=== PATIENT | male | born 1955 | race Caucasian/White ===

== ENCOUNTER 2019-08-08 22:23 | Inpatient (IN) ==
--- NOTE | 2019-08-08 22:45 | Emergency Department Note ---
History of Present Illness General Chief Complaint: Chest Pain Stated Complaint: CHEST PAIN, Time Seen by Provider: 08/08/19 22:35 Source: patient Mode of arrival: ambulatory Limitations: no limitations History of Present Illness Provider Complaint: chest pain Onset (ago): hour(s) 3 Duration: intermittent (The patient states that the pain comes and goes about every 15 minutes or so. Does not appear to be exertion related.) and now resolved Onset: during rest Pain Location: substernal Pain Radiation: back (Mildly to the back) Severity: severe (When it occurs.) Maximum Pain Intensity: 7 Current Pain Intensity: 0 Quality: + other (Pain) Relieved By: + nothing Exacerbated By: + nothing Context: no recent illness, no recent surgery, no new medications and no history of DVT/PE Associated symptoms: no nausea, no vomiting, no diaphoresis, no dyspnea, no sense of impending doom, no palpitations, no fever, no cough and no leg swelling Treatments prior to arrival: none The patient is a 64-year-old male who presents to the ED with a chief complaint of some chest pain that he describes as a pain that started around 7:30 PM tonight. He states that the pain comes and goes. When it comes it is intense. It then goes away for about 10 to 15 minutes. It comes back randomly and it started when he was at rest. He has history of three-vessel CABG in 2005. His pain is retrosternal and radiates a little to the back. Denies any associated symptoms. No nausea, diaphoresis, shortness of breath or recent illness. Home Medications Home Medications Medication Instructions Recorded Confirmed Type aspirin 81 mg PO DAILY 08/08/19 08/08/19 History atenolol 12.5 mg PO DAILY 08/08/19 08/08/19 History atorvastatin 20 mg PO DAILY 08/08/19 08/08/19 History empagliflozin [Jardiance] 25 mg PO DAILY 08/08/19 08/08/19 History hydrochlorothiazide 25 mg PO UD 08/08/19 08/08/19 History insulin aspart U-100 [Novolog 1 sliding scale dose SUBCUT 08/08/19 08/08/19 History PenFill U-100 Insulin] USEASDIRECTD insulin glargine [Lantus U-100 31 unit SUBCUT BID 08/08/19 08/08/19 History Insulin] lisinopril 5 mg PO DAILY 08/08/19 08/08/19 History metformin 1,000 mg PO BID 08/08/19 08/08/19 History multivitamin 1 tab PO DAILY 08/08/19 08/08/19 History omega 7-ppb-ild-fish oil [Fish Oil] 3 cap PO DAILY 08/08/19 08/08/19 History sitagliptin [Januvia] 100 mg PO DAILY 08/08/19 08/08/19 History Allergies Allergy/AdvReac Type Severity Reaction Status Date / Time No Known Allergies Allergy Mild Verified 08/08/19 22:59 Past Med/Surg History Medical History (Updated 08/08/19 @ 22:53 by Juancho Rios DO) Diabetes Surgical History (Updated 08/08/19 @ 22:47 by Juancho Rios DO) Hx of CABG Social History Feels Safe at Home: Yes Smoking Status: Never smoker Review of Systems A total of 10 systems reviewed and were otherwise negative Physical Exam Vital Signs Vital Signs - 24 hr 08/08/19 22:25 08/08/19 23:00 08/08/19 23:09 Temperature 36.5 C Temperature Source Oral Pulse Rate 88 76 Pulse Rate from SpO2 Sensor 77 Respiratory Rate 20 18 Respiratory Effort / Characteristics Non-Labored Respiratory Depth Normal Blood Pressure 157/90 H 136/62 Blood Pressure Mean 112 77 Pulse Oximetry 95 94 94 Oxygen Delivery Method Room Air Room Air Room Air Sepsis Recent Fever Within 48 Hours No Sepsis New/Unexplained Change in Mental Status No Sepsis Action Taken by Nursing No Action Required 08/08/19 23:32 08/09/19 00:00 Temperature Temperature Source Pulse Rate 78 Pulse Rate from SpO2 Sensor 77 Respiratory Rate 18 Respiratory Effort / Characteristics Respiratory Depth Blood Pressure 131/64 Blood Pressure Mean 83 Pulse Oximetry 94 95 Oxygen Delivery Method Room Air Room Air Sepsis Recent Fever Within 48 Hours Sepsis New/Unexplained Change in Mental Status Sepsis Action Taken by Nursing CONSTITUTIONAL/VITAL SIGNS: Reviewed / noted above. GENERAL: Non-toxic in appearance. INTEGUMENTARY: Warm, dry, and [place]. HEAD: Normocephalic. EYES: without scleral icterus or trauma. ENT/OROPHARYNX: clear and moist. LYMPHADENOPATHY/NECK: Is supple without lymphadenopathy or meningismus. RESPIRATORY: Lungs clear and equal. CARDIOVASCULAR: Regular rate and rhythm. GI/ABDOMEN: Soft and nontender. No organomegaly or pulsatile mass. No rebound or guarding. Normal bowel sounds. EXTREMITIES: Warm and well perfused. BACK: No CVA tenderness. NEUROLOGICAL: Intact without focal deficits. PSYCHIATRIC: normal affect. MUSCULOSKELETAL: Normally developed with good muscle tone. TRIAGE NURSING DOCUMENTATION REVIEWED. Course Administered Medications Discontinued Medications Aspirin (Aspirin) 324 mg PO NOW STA Stop: 08/09/19 00:11 Last Admin: 08/09/19 00:16 Dose: 324 mg Documented by: [id number] Medical Decision Making Differential Diagnosis The differential that was considered includes acute myocardial infarction, acute coronary syndrome, myocarditis, pericarditis, pericardial effusions /tamponade, esophageal perforation, thoracic aortic dissection, pulmonary embolism, pneumonia, pneumothorax, pancreatitis, shingles, acute cholecystitis, perforated abdominal viscus. Medical Records Attestation: I reviewed the patient's medical records. Home Medications Current Medication List: was personally reviewed by me Laboratory Data Attestation: I reviewed the patient's lab results. Result diagrams: 08/08/19 22:42 08/08/19 22:42 Labs: Lab Results 08/08/19 08/08/19 08/08/19 Range/Units 22:42 22:42 22:55 WBC 8.81 (4.8-10.8) K/uL RBC 5.26 (4.7-6.1) M/uL Hgb 16.2 (14.0-18.0) g/dL Hct 46.4 (42-52) % MCV 88.2 (80-100) fL MCH 30.8 (25-34) pg MCHC 34.9 (32-36) g/dL RDW Std Deviation 40.8 (36.4-46.3) fL RDW Coeff of Jenise 12.8 (11.5-14.5) % Plt Count 203 (130-400) K/uL MPV 10.6 H (7.4-10.4) fL Immature Gran % (Auto) 0.6 % Neut % (Auto) 57.9 % Lymph % (Auto) 31.3 % Day % (Auto) 8.5 % Eos % (Auto) 1.5 % Baso % (Auto) 0.2 % Immature Gran # (Auto) 0.05 H (0.00-0.02) K/uL Neut # (Auto) 5.10 (1.4-6.5) K/uL Lymph # (Auto) 2.76 (1.2-3.4) K/uL Day # (Auto) 0.75 H (0.11-0.59) K/uL Eos # (Auto) 0.13 (0-0.5) K/uL Baso # (Auto) 0.02 (0-0.2) K/uL PT 10.5 (9.0-12.0) Seconds INR 1.0 (0.9-1.1) APTT 26.5 (21.0-31.0) Seconds PTT Ratio 0.9 Sodium 137 (136-145) mmol/L Potassium 3.6 (3.5-5.1) mmol/L Chloride 103 (98-107) mmol/L Carbon Dioxide 26 (21-32) mmol/L Anion Gap 8.0 (3-11) BUN 15 (7-18) mg/dl Creatinine 1.17 (0.6-1.4) mg/dl Est Cr Clr Drug Dosing 80.0 ml/min Est GFR ( Amer) 74.9 Est GFR (Non-Af Amer) 64.6 BUN/Creatinine Ratio 13.2 (10-20) Glucose 215 H (70-99) mg/dl Calcium 9.1 (8.5-10.1) mg/dl Total Bilirubin 0.5 (0.2-1) mg/dl AST 21 (15-37) U/L ALT 32 (12-78) U/L Alkaline Phosphatase 81 (45-117) U/L Total Creatine Kinase 95 (39-308) U/L Troponin I 0.057 H* (0-0.045) ng/ml Total Protein 8.0 (6.4-8.2) gm/dl Albumin 3.5 (3.4-5.0) gm/dl Globulin 4.5 H (2.5-4.0) gm/dl Albumin/Globulin Ratio 0.8 L (0.9-2) Specimen Hemolysis Imaging Data Chest x-ray: Radiologist's impression: XR chest 1V portable CLINICAL HISTORY: Atypical chest pain COMPARISON STUDY: 2005 FINDINGS: There are postsurgical changes of midline sternotomy. The heart is mildly enlarged. There is no failure. There is no focal pulmonary consolidation. There are no pleural effusions. There are minor atelectatic changes at the left lung base.[ IMPRESSION: No active disease in the chest. ECG Data Attestation: I personally reviewed and interpreted this ECG as follows: Indication: chest pain Rate (beats per minute): 89 Rhythm: sinus tachycardia Findings: + PAC, + PVC and + RBBB; no ST elevation Additional Comments: The patient does report he has history of a chronic right bundle branch block. Blood Pressure Blood Pressure Findings: Elevated blood pressure Blood Pressure Disposition: Referred to patients primary care provider MDM Narrative The patient is a 64-year-old male who presents to the ED with a chief complaint of some chest pain that he describes as a pain that started around 7:30 PM tonight. He states that the pain comes and goes. When it comes it is intense. It then goes away for about 10 to 15 minutes. It comes back randomly and it started when he was at rest. He has history of three-vessel CABG in 2005. His pain is retrosternal and radiates a little to the back. Denies any associated symptoms. No nausea, diaphoresis, shortness of breath or recent illness. The patient's blood pressure was elevated. His physical exam was unremarkable. He is currently asymptomatic. His twelve-lead EKG shows a sinus tach at a rate of 89 with occasional PAC and PVC. No acute ischemic changes. The patient's troponin is mildly elevated. CBC and chemistry panel was unremarkable. The patient was given aspirin p.o. as well as Lovenox subcu. The patient will be seen by the hospitalist for further evaluation and care. Impression & Plan Chest pain Discharge Plan Visit Data Chief Complaint: Chest Pain Stated Complaint: CHEST PAIN, ED Provider: Juancho Rios Discharge Problem: Chest pain Patient Disposition: Being Evaluated by Hospitalist Forms Stand Alone Forms: My [facility] Prescriptions Prescriptions: No Action aspirin 81 mg Tablet,Delayed Release (Dr/Ec) 81 mg PO DAILY RF: 0 atenolol 25 mg Tablet 12.5 mg PO DAILY RF: 0 atorvastatin 20 mg Tablet 20 mg PO DAILY RF: 0 omega 1-vib-pow-fish oil [Fish Oil] 1,000 mg (120 mg-180 mg) Capsule 3 cap PO DAILY RF: 0 hydrochlorothiazide 25 mg Tablet 25 mg PO UD RF: 0 insulin aspart U-100 [Novolog PenFill U-100 Insulin] 100 unit/mL Cartridge 1 sliding scale dose SUBCUT USEASDIRECTD RF: 0 Lantus U-100 Insulin 100 unit/mL Solution 31 unit SUBCUT BID RF: 0 lisinopril 5 mg Tablet 5 mg PO DAILY RF: 0 metformin 1,000 mg Tablet 1,000 mg PO BID RF: 0 multivitamin Tablet 1 tab PO DAILY RF: 0 Januvia 100 mg Tablet 100 mg PO DAILY RF: 0 Jardiance 25 mg Tablet 25 mg PO DAILY RF: 0 Referrals Referrals: Bruno Leiva MD [Primary Care Provider] - Discharge Problem: Chest pain Qualifiers: Chest pain type: precordial pain Qualified Code(s): R07.2 - Precordial pain
[2019-08-08 22:48] LABS: Basophils # (auto) 0.02 K/uL (0-0.2); Basophils % (auto) 0.2 %; Eosinophils # (auto) 0.13 K/uL (0-0.5); Eosinophils % (auto) 1.5 %; Hematocrit (blood only) 46.4 % (42-52); Hemoglobin 16.2 g/dL (14.0-18.0); Immature Granulocytes # (auto) 0.05 K/uL (0.00-0.02); Immature Granulocytes % (auto) 0.6 %; Lymphocytes # (auto) 2.76 K/uL (1.2-3.4); Lymphocytes % (auto) 31.3 %; Mean Corpuscular Hemoglobin 30.8 pg (25-34); Mean Corpuscular Hgb Conc 34.9 g/dL (32-36); Mean Corpuscular Volume 88.2 fL (80-100); Mean Platelet Volume 10.6 fL (7.4-10.4); Monocytes # (auto) 0.75 K/uL (0.11-0.59); Monocytes % (auto) 8.5 %; Neutrophils % (auto) 57.9 %; Platelet Count 203 K/uL (130-400); RDW Coefficient of Variation 12.8 % (11.5-14.5); RDW Standard Deviation 40.8 fL (36.4-46.3); Red Blood Count 5.26 M/uL (4.7-6.1); White Blood Count 8.81 K/uL (4.8-10.8)
--- NOTE | 2019-08-08 22:54 | XRay Report ---
XR chest 1V portable CLINICAL HISTORY: Atypical chest pain COMPARISON STUDY: 2006 FINDINGS: There are postsurgical changes of midline sternotomy. The heart is mildly enlarged. There i s no failure. There is no focal pulmonary consolidation. There are no pleural effusions. There are mi nor atelectatic changes at the left lung base.[ IMPRESSION: No active disease in the chest. ACT 112: Negative or not required by law. Electronically signed by: Eugenio Sanchez M.D. 08/08/2019 10:52 PM
[2019-08-08 23:17] LABS: Partial Thromboplastin Ratio 0.9; Partial Thromboplastin Time 26.5 Seconds (21.0-31.0); Prothrombin Time 10.5 Seconds (9.0-12.0)
[2019-08-08 23:30] LABS: Albumin Globulin Ratio 0.8 (0.9-2); Albumin Level 3.5 gm/dl (3.4-5.0); BUN Creatinine Ratio 13.2 (10-20); Bilirubin,Total 0.5 mg/dl (0.2-1); Calcium 9.1 mg/dl (8.5-10.1); Est GFR (African American) 74.9; Est GFR (Non-African American) 64.6; Globulin 4.5 gm/dl (2.5-4.0); Potassium 3.6 mmol/L (3.5-5.1); Troponin I 0.057 ng/ml (0-0.045)
[2019-08-09] MEDS ORDERED: ASPIRIN CHEW 324 MG PO STA (00:10)
[2019-08-09] MEDS ORDERED: ENOXAPARIN 1 MG/KG SQ SCH (00:15)
[2019-08-09] MEDS ORDERED: Heparin IV Standard *NO* Bolus IV STA (00:39)
--- NOTE | 2019-08-09 00:39 | History & Physical Report ---
Date of Service August 09, 2019 Assessment & Plan (1) Chest pain: With troponin elevation hx CAD status post CABG NSTEMI vs uncontrolled hypertension hyperlipidemia, on statin Rx DM 2 insulin requiring, suboptimal control as of recent outpatient hemoglobin A1c of 8.20 December 2018 past tobacco abuse PCU Continue patient aspirin, beta marisol, statin Rx; IV heparin, nitro as needed Trend troponin TTE, Cardiology consult RE chest pain Titrate home BP meds Basal insulin adjusted for n.p.o. status in anticipation of procedure in a.m., ISS BG goal [id number], carb count coverage, update hemoglobin A1c DVT prophylaxis with IV heparin Full code Text document was generated using Head[employer] voice recognition software. It may contain grammatical or spelling errors. Kindly contact undersigned for clarification of any documentation item in question. History of Present Illness CABG CABG Chief Complaint: Chest pain Primary Care Provider: Bruno Leiva MD History obtained from patient and records. Medical history significant for CAD status post CABG, hypertension, hyperlipidemia, DM 2 insulin requiring, past tobacco abuse, GERD. Remote confinement December 2005 for right-sided heart failure, posterior pericardial effusion. Patient transferred to [facility] for further management. 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 Patient compliant with home meds. Admits to a little more stress than usual at the [facility] due to pandemic. Spontaneous resolution of chest pain at the ER. Medical History as above Surgical History : CABG, appendectomy, left femur surgery, ton sillectomy/adenoidectomy Family History : Heart disease, diabetes Personal/Social history : Past tobacco abuse, rare EtOH intake, [employer] employee Allergies Allergy/AdvReac Type Severity Reaction Status Date / Time No Known Allergies Allergy Mild Verified 08/08/19 22:59 Home Medications Home Medications Medication Instructions Recorded Confirmed Type aspirin 81 mg PO DAILY 08/08/19 08/08/19 History atenolol 12.5 mg PO DAILY 08/08/19 08/08/19 History atorvastatin 20 mg PO DAILY 08/08/19 08/08/19 History empagliflozin [Jardiance] 25 mg PO DAILY 08/08/19 08/08/19 History hydrochlorothiazide 25 mg PO UD 08/08/19 08/08/19 History insulin aspart U-100 [Novolog 1 sliding scale dose SUBCUT 08/08/19 08/08/19 History PenFill U-100 Insulin] USEASDIRECTD insulin glargine [Lantus U-100 31 unit SUBCUT BID 08/08/19 08/08/19 History Insulin] lisinopril 5 mg PO DAILY 08/08/19 08/08/19 History metformin 1,000 mg PO BID 08/08/19 08/08/19 History multivitamin 1 tab PO DAILY 08/08/19 08/08/19 History omega 4-hij-iec-fish oil [Fish Oil] 3 cap PO DAILY 08/08/19 08/08/19 History sitagliptin [Januvia] 100 mg PO DAILY 08/08/19 08/08/19 History Past Med/Surg History Medical History (Updated 08/08/19 @ 22:53 by Juancho Rios DO) Diabetes Surgical History (Updated 08/08/19 @ 22:47 by Juancho Rios DO) Hx of CABG Social History Preferred Language: Bulgarian Communication Ability: Effective Orthopedic Assistant Required: No Beliefs That Will Affect Care: None Current Living Situation: Spouse Other Information That Helps Us Care for You: No Feels Safe at Home: Yes Safety Concerns: Feels Safe At This Time Smoking Status: Former smoker Do You Dip or Chew Tobacco: No ; Smoking End Date: 1988 ; Second Hand Exposure: No ; Tobacco Cessation Education Requested by Patient: No Hx Alcohol Use: No Hx Substance Use: No Review of Systems Review of Systems: As per HPI, all 10 systems reviewed, all other ROS negative Physical Exam Physical Exam: GENERAL: Comfortable, pleasant, obese, no respiratory distress SKIN: Normal color, warm HEENT: Partial alopecia, [place] palpebral conjunctivae, no ptosis, dry buccal mucosa NECK : Supple, short neck, no tenderness CHEST : CTA, no tenderness HEART : RRR, no obvious murmurs ABDOMEN: Some distention, nontender EXTREMITIES : Minimal LE swelling, no LE tenderness, no other conspicuous deformities noted NEUROLOGIC : Coherent, no facial asymmetry, no other gross focality Results & Data Vital Signs (Past 12 Hours) Vital Signs Temp Pulse Resp BP Pulse Ox 08/09/19 00:30 81 19 164/78 H 97 08/09/19 00:00 78 18 131/64 95 08/08/19 23:32 94 08/08/19 23:09 76 18 136/62 94 08/08/19 23:00 94 08/08/19 22:25 36.5 C 88 20 157/90 H 95 Laboratory Results Laboratory Results WBC 8.81 K/uL (4.8-10.8) 08/08/19 22:42 RBC 5.26 M/uL (4.7-6.1) 08/08/19 22:42 Hgb 16.2 g/dL (14.0-18.0) 08/08/19 22:42 Hct 46.4 % (42-52) 08/08/19 22:42 MCV 88.2 fL (80-100) 08/08/19 22:42 MCH 30.8 pg (25-34) 08/08/19 22:42 MCHC 34.9 g/dL (32-36) 08/08/19 22:42 RDW Std Deviation 40.8 fL (36.4-46.3) 08/08/19 22:42 RDW Coeff of Jenise 12.8 % (11.5-14.5) 08/08/19 22:42 Plt Count 203 K/uL (130-400) 08/08/19 22:42 MPV 10.6 fL (7.4-10.4) H 08/08/19 22:42 Immature Gran % (Auto) 0.6 % 08/08/19 22:42 Neut % (Auto) 57.9 % 08/08/19 22:42 Lymph % (Auto) 31.3 % 08/08/19 22:42 Glenn % (Auto) 8.5 % 08/08/19 22:42 Eos % (Auto) 1.5 % 08/08/19 22:42 Baso % (Auto) 0.2 % 08/08/19 22:42 Immature Gran # (Auto) 0.05 K/uL (0.00-0.02) H 08/08/19 22:42 Neut # (Auto) 5.10 K/uL (1.4-6.5) 08/08/19 22:42 Lymph # (Auto) 2.76 K/uL (1.2-3.4) 08/08/19 22:42 Glenn # (Auto) 0.75 K/uL (0.11-0.59) H 08/08/19 22:42 Eos # (Auto) 0.13 K/uL (0-0.5) 08/08/19 22:42 Baso # (Auto) 0.02 K/uL (0-0.2) 08/08/19 22:42 PT 10.5 Seconds (9.0-12.0) 08/08/19 22:55 INR 1.0 (0.9-1.1) 08/08/19 22:55 APTT 26.5 Seconds (21.0-31.0) 08/08/19 22:55 PTT Ratio 0.9 08/08/19 22:55 Sodium 137 mmol/L (136-145) 08/08/19 22:42 Potassium 3.6 mmol/L (3.5-5.1) 08/08/19 22:42 Chloride 103 mmol/L (98-107) 08/08/19 22:42 Carbon Dioxide 26 mmol/L (21-32) 08/08/19 22:42 Anion Gap 8.0 (3-11) 08/08/19 22:42 BUN 15 mg/dl (7-18) 08/08/19 22:42 Creatinine 1.17 mg/dl (0.6-1.4) 08/08/19 22:42 Est Cr Clr Drug Dosing 80.0 ml/min 08/08/19 22:42 Est GFR ( Amer) 74.9 08/08/19 22:42 Est GFR (Non-Af Amer) 64.6 08/08/19 22:42 BUN/Creatinine Ratio 13.2 (10-20) 08/08/19 22:42 Glucose 215 mg/dl (70-99) H 08/08/19 22:42 Calcium 9.1 mg/dl (8.5-10.1) 08/08/19 22:42 Total Bilirubin 0.5 mg/dl (0.2-1) 08/08/19 22:42 AST 21 U/L (15-37) 08/08/19 22:42 ALT 32 U/L (12-78) 08/08/19 22:42 Alkaline Phosphatase 81 U/L (45-117) 08/08/19 22:42 Total Creatine Kinase 95 U/L (39-308) 08/08/19 22:42 Troponin I 0.057 ng/ml (0-0.045) H* 08/08/19 22:42 Total Protein 8.0 gm/dl (6.4-8.2) 08/08/19 22:42 Albumin 3.5 gm/dl (3.4-5.0) 08/08/19 22:42 Globulin 4.5 gm/dl (2.5-4.0) H 08/08/19 22:42 Albumin/Globulin Ratio 0.8 (0.9-2) L 08/08/19 22:42 Specimen Hemolysis 08/08/19 22:42 Diagnostic Findings Chest x-ray : There are postsurgical changes of midline sternotomy. The heart is mildly enlarged. There is no failure. There is no focal pulmonary consolidation. There are no pleural effusions. There are minor atelectatic changes at the left lung base.[ EKG as per my interpretation : Rate 90, NSR, normal axis, right bundle branch block, PVCs (1) Chest pain Chest pain type: precordial pain Qualified Code(s): R07.2 - Precordial pain
[2019-08-09] MEDS ORDERED: lisinopriL 10 MG TAB PO STA (00:48)
[2019-08-09] MEDS ORDERED: HEPARIN 25000 UNIT/500 ML D5W IV ONE (00:50)
[2019-08-09] MEDS: HEPARIN SODIUM/DEXTROSE 25,000 UNITS/500 ML BAG IV SCH ×2 (00:52→01:45)
[2019-08-09] MEDS ORDERED: lisinopriL 5 MG TAB PO ONE (00:58)
[2019-08-09 01:05] LABS: Thyroid Stimulating Hormone 4.17 uIu/ml (0.300-4.500)
[2019-08-09] MEDS ORDERED: LORazepam 0.5 MG/1 ML VIAL IV PRN (01:40)
[2019-08-09] MEDS ORDERED: MoRPHine SULFATE 4 MG/ML 1 ML CARP\\VIAL IV PRN (01:40)
[2019-08-09] MEDS ORDERED: DEXTROSE 50% 50 ML SYRINGE IV PRN (01:40)
[2019-08-09] MEDS ORDERED: CARBOHYDRATES FOR HYPOGLYCEMIA PO PRN (01:40)
[2019-08-09] MEDS ORDERED: GLUCOSE 40% GEL 15 GM TUBE PO PRN (01:40)
[2019-08-09] MEDS ORDERED: GLUCOSE 10 TABS/TUBE PO PRN (01:40)
[2019-08-09] MEDS ORDERED: GLUCAGON FOR INJ 1 MG VIAL SQ PRN (01:40)
[2019-08-09] MEDS ORDERED: NSS + 20MEQ KCL 20 MEQ/1,000 ML BAG IV SCH (01:40)
[2019-08-09] MEDS ORDERED: ACETAMINOPHEN 325 MG TAB PO PRN (01:40)
[2019-08-09] MEDS ORDERED: TRAMADOL HCL 50 MG TABLET PO PRN (01:40)
[2019-08-09] MEDS ORDERED: PROMETHAZINE HCL 12.5 MG in SODIUM CHLORIDE 0.9% 50 ML IV PRN (01:40)
[2019-08-09] MEDS ORDERED: INSULIN GLARGINE SOLOSTAR 100 UNITS/ML 3 ML PEN SC STA (01:40)
[2019-08-09] MEDS: INSULIN ASPART 100 UNITS/ML 3 ML PEN SC SCH ×5 (02:18→21:19)
[2019-08-09] MEDS ORDERED: ATENOLOL 25 MG TABLET PO SCH ×2 (03:30→09:00)
[2019-08-09] MEDS ORDERED: POTASSIUM CHLORIDE 20 MEQ TABCR PO STA (05:18)
[2019-08-09 07:12] LABS: Basophils # (auto) 0.02 K/uL (0-0.2); Basophils % (auto) 0.2 %; Eosinophils # (auto) 0.08 K/uL (0-0.5); Hematocrit (blood only) 43.7 % (42-52); Hemoglobin 14.8 g/dL (14.0-18.0); Immature Granulocytes # (auto) 0.03 K/uL (0.00-0.02); Immature Granulocytes % (auto) 0.4 %; Lymphocytes # (auto) 2.11 K/uL (1.2-3.4); Lymphocytes % (auto) 26.3 %; Mean Corpuscular Hgb Conc 33.9 g/dL (32-36); Mean Corpuscular Volume 88.5 fL (80-100); Monocytes # (auto) 0.57 K/uL (0.11-0.59); Monocytes % (auto) 7.1 %; Neutrophils # (auto) 5.22 K/uL (1.4-6.5); Platelet Count 200 K/uL (130-400); RDW Coefficient of Variation 12.8 % (11.5-14.5); RDW Standard Deviation 41.5 fL (36.4-46.3); Red Blood Count 4.94 M/uL (4.7-6.1); White Blood Count 8.03 K/uL (4.8-10.8)
--- NOTE | 2019-08-09 07:36 | Electrocardiogram Report ---
Test Reason : Blood Pressure : / mmHG Vent. Rate : 089 BPM Atrial Rate : 089 BPM P-R Int : 182 ms QRS Dur : 134 ms QT Int : 394 ms P-R-T Axes : 065 062 063 degrees QTc Int : 479 ms Sinus rhythm with occasional Premature ventricular complexes and Premature atrial complexes Right bundle branch block Abnormal ECG When compared with ECG of 08-JAN-2006 07:25, Premature ventricular complexes are now Present Premature atrial complexes are now Present Right bundle branch block is now Present Confirmed by Norm Suh ([id number]) on 08/09/2019 7:35:59 AM Referred By: REFERRED SELF Confirmed By:Norm Suh
[2019-08-09 07:40] LABS: Partial Thromboplastin Ratio 1.5; Partial Thromboplastin Time 41.3 Seconds (21.0-31.0)
[2019-08-09 07:41] LABS: BUN Creatinine Ratio 13.5 (10-20); Calcium 8.9 mg/dl (8.5-10.1); Creatinine Clr Calc Pharmacy 95.5 ml/min; Est GFR (African American) 86.3; Est GFR (Non-African American) 74.5; Potassium 3.6 mmol/L (3.5-5.1)
[2019-08-09 07:50] LABS: Troponin I 1.76 ng/ml (0-0.045)
[2019-08-09] MEDS ORDERED: HEPARIN IV BOLUS 4,000 UNITS in SYRINGE 0 ML IV ONE (08:00)
[2019-08-09 08:02] LABS: Estimated Average Glucose 197 mg/dl; Hemoglobin A1C 8.5 % (4.5-5.6)
[2019-08-09] MEDS ORDERED: NITROGLYCERIN SL 0.4 MG/TAB TAB SL PRN (08:29)
[2019-08-09] MEDS ORDERED: INSULIN GLARGINE SOLOSTAR 100 UNITS/ML 3 ML PEN SC SCH (09:00)
[2019-08-09] MEDS ORDERED: ASPIRIN 81 MG ECTAB PO SCH (09:00)
[2019-08-09] MEDS ORDERED: ASPIRIN 81 MG CHEW PO STA (09:06)
--- NOTE | 2019-08-09 09:07 | Cardiology Consultation ---
Date of Consultation August 09, 2019 Assessment & Plan (1) NSTEMI (non-ST elevated myocardial infarction): Although the patient does have a history of class I-II exertional angina, he describes that occasionally he has chest pains, but nothing similar to what he had last evening which she describes as being acute in onset, and severe. It went away on its own, but then waxed and waned over the next few hours as he tried to go to bed. Troponin was mildly elevated on presentation, and increased to 1.75 NG per mL on the second measurement. His blood pressure is relatively well controlled, and he still has mild residual chest pressure on medication therapy including aspirin, atenolol, atorvastatin, and unfractioned heparin. Of note patient has already had a resting echocardiogram revealing normal biventricular systolic function without regional wall motion abnormalities or significant valvular heart disease earlier today. Complete report pending. Recommend proceeding with diagnostic cardiac catheterization. Patient was agreeable. Of note, when he had his cardiac catheterization in 2014, the patient recalls having had an arrhythmia that required defibrillation. This history will be taken into account. Patient is to undergo diagnostic cardiac catheterization with Dr Reece this am. His heparin is going to be placed on hold and his is to receive aspirin 81 mg x 4 chewed stat. History of Present Illness Attending Physician: Deni Meza MD History of Present Illness Bart Ramirez is a 64 year old male seen in cardiology consultation per the request of Dr Guevara for the evaluation of a NSTEMI. The patient's primary sole buffer is Dr. Parminder Gomez of our practice. His most recent outpatient visit had been in May 2019 at which time stable cardiac signs and symptoms were noted. An EKG performed at the time of that visit in May 2019 revealed right bundle branch block with left anterior fascicular block pattern, which had progressed compared to 2018 at which time an incomplete right bundle branch block was noted. The patient was in his normal state of health yesterday. 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 He rested and this went away on its own. He went home and tried to go to sleep but the discomfort would wax and wane and come back about every 10 minutes prompting him to ultimately present to the emergency department. His initial blood pressure taken at 2225 hrs. last night was 157/90. EKG on arrival revealed sinus rhythm with right bundle branch block and mild inferior and anterior repolarization abnormalities, difficult to distinguish between findings due to right bundle branch block versus ischemia. EKG performed this morning reveals ongoing right bundle branch block, with subtle improvement in the ST segments. At present, he is receiving a heparin infusion. He is notes ongoing mild "pressure "but it is better than last night, and overall he is not in distress. Past Cardiac History: Chronic coronary heart disease, status post CABG x3 in 2005 receiving ACHARYA to LAD, and a saphenous vein graft with sequential touchdowns to the diagonal and OM. Most recent cardiac catheterization took place at [facility] [place] in 2014 at which time [place] CAD noted including occlusion of the mid LAD and circumflex, the [place] RCA had mild nonobstructive disease. The ACHARYA to LAD graft was patent. The saphenous vein graft to diagonal was patent, but the sequential portion to the OM was occluded. Of note, when the saphenous vein graft was injected, the patient had a episode of ventricular fibrillation that required defibrillation during the procedure. Ultimately medical management was recommended after cardiac catheterization, and was also noted that he had elevated diastolic filling pressures and therefore his antihypertensives and diuretic therapy was adjusted. Other Past Medical History: HTN DM2 Allergies Allergy/AdvReac Type Severity Reaction Status Date / Time No Known Allergies Allergy Mild Verified 08/08/19 22:59 Home Medications Home Medications Medication Instructions Recorded Confirmed Type aspirin 81 mg PO DAILY 08/08/19 08/08/19 History atenolol 12.5 mg PO DAILY 08/08/19 08/08/19 History atorvastatin 20 mg PO DAILY 08/08/19 08/08/19 History empagliflozin [Jardiance] 25 mg PO DAILY 08/08/19 08/08/19 History hydrochlorothiazide 25 mg PO UD 08/08/19 08/08/19 History insulin aspart U-100 [Novolog 1 sliding scale dose SUBCUT 08/08/19 08/08/19 History PenFill U-100 Insulin] USEASDIRECTD insulin glargine [Lantus U-100 31 unit SUBCUT BID 08/08/19 08/08/19 History Insulin] lisinopril 5 mg PO DAILY 08/08/19 08/08/19 History metformin 1,000 mg PO BID 08/08/19 08/08/19 History multivitamin 1 tab PO DAILY 08/08/19 08/08/19 History omega 1-vep-fic-fish oil [Fish Oil] 3 cap PO DAILY 08/08/19 08/08/19 History sitagliptin [Januvia] 100 mg PO DAILY 08/08/19 08/08/19 History Patient History Medical History (Updated 08/09/19 @ 09:13 by Tab Brooke DO) Diabetes Surgical History Hx of CABG Social History Preferred Language: Lao Communication Ability: Effective Solar Thermal Installer Required: No Beliefs That Will Affect Care: None Current Living Situation: Spouse Other Information That Helps Us Care for You: No Feels Safe at Home: Yes Safety Concerns: Feels Safe At This Time Smoking Status: Former smoker Do You Dip or Chew Tobacco: No ; Smoking End Date: 1988 ; Second Hand Exposure: No ; Tobacco Cessation Education Requested by Patient: No Hx Alcohol Use: No Hx Substance Use: No Review of Systems Review of Systems: All systems reviewed & are unremarkable except as noted in HPI & below Physical Exam Physical Exam: Temp Pulse Resp BP Pulse Ox 36.4 C L 74 18 142/77 H 96 08/09/19 07:18 08/09/19 07:18 08/09/19 07:18 08/09/19 07:18 08/09/19 07:18 Constitutional: WD/WN, vitals as above Respiratory: normal respiratory effort, lungs clear to auscultation Cardiovascular: Rate/Rhythm: regular rhythm Heart Sounds: no gallop and no murmur Extremities: + edema (Trace LE edema ) Gastrointestinal (Abdomen): normal bowel sounds, soft, nontender, no hepatosplenomegaly Skin: no rashes, warm and dry Neurologic: PERRL, EOMI, accommodation nl, no face palsy, no dysarthria Results & Data ([facility]) Vital Signs (Past 12 Hours) Vital Signs Temp Pulse Pulse Pulse Resp BP BP 08/09/19 07:18 36.4 C L 74 18 142/77 H 08/09/19 03:59 36.6 C 75 19 118/77 08/09/19 03:28 159/77 H 08/09/19 01:50 36.7 C 81 18 189/77 H 08/09/19 01:48 77 08/09/19 01:00 77 20 138/71 08/09/19 00:34 80 24 146/69 H 08/09/19 00:30 81 19 164/78 H 08/09/19 00:00 78 18 131/64 08/08/19 23:32 08/08/19 23:09 76 18 136/62 08/08/19 23:00 08/08/19 22:25 36.5 C 88 20 157/90 H Pulse Ox 08/09/19 07:18 96 08/09/19 03:59 96 08/09/19 03:28 08/09/19 01:50 95 08/09/19 01:48 08/09/19 01:00 97 08/09/19 00:34 97 08/09/19 00:30 97 08/09/19 00:00 95 08/08/19 23:32 94 08/08/19 23:09 94 08/08/19 23:00 94 08/08/19 22:25 95 Laboratory Results Cardiac Enzymes 08/08/19 08/09/19 Range/Units 22:42 07:01 AST 21 (15-37) U/L Troponin I 0.057 H* 1.760 H* (0-0.045) ng/ml Coagulation 08/08/19 08/09/19 Range/Units 22:55 07:01 PT 10.5 (9.0-12.0) Seconds APTT 26.5 41.3 H (21.0-31.0) Seconds Lipids 08/09/19 Range/Units 07:01 Triglycerides 118 (0-150) mg/dl Cholesterol 125 (0-200) mg/dl HDL Cholesterol 41 mg/dl Cholesterol/HDL Ratio 3 CBC 08/08/19 08/09/19 Range/Units 22:42 07:01 WBC 8.81 8.03 (4.8-10.8) K/uL RBC 5.26 4.94 (4.7-6.1) M/uL Hgb 16.2 14.8 (14.0-18.0) g/dL Hct 46.4 43.7 (42-52) % Plt Count 203 200 (130-400) K/uL Neut # (Auto) 5.10 5.22 (1.4-6.5) K/uL Lymph # (Auto) 2.76 2.11 (1.2-3.4) K/uL [place] # (Auto) 0.75 H 0.57 (0.11-0.59) K/uL Eos # (Auto) 0.13 0.08 (0-0.5) K/uL Baso # (Auto) 0.02 0.02 (0-0.2) K/uL Comprehensive Metabolic Panel 08/08/19 08/09/19 Range/Units 22:42 07:01 Sodium 137 139 (136-145) mmol/L Potassium 3.6 3.6 (3.5-5.1) mmol/L Chloride 103 106 (98-107) mmol/L Carbon Dioxide 26 28 (21-32) mmol/L BUN 15 14 (7-18) mg/dl Creatinine 1.17 1.04 (0.6-1.4) mg/dl Glucose 215 H 129 H (70-99) mg/dl Calcium 9.1 8.9 (8.5-10.1) mg/dl AST 21 (15-37) U/L ALT 32 (12-78) U/L Alkaline Phosphatase 81 (45-117) U/L Total Protein 8.0 (6.4-8.2) gm/dl Albumin 3.5 (3.4-5.0) gm/dl Intake and Output 08/08/19 08/09/19 08/09/19 22:59 06:59 14:59 Intake Total 232.1 / 232.1 Balance 232.1 / 232.1 Intake: IV 232.1 / 232.1 HEPARIN SODIUM/DEXTROSE 25,000 232.1 / 232.1 units In 500 ml @ 1,650 UNITS/ HR 33 mls/hr IV .[id number] [facility] Rx #:[id number] Other: Other Intake Source NPO # Unmeasured Voids 1 Weight 132.1 kg 132.1 kg Diagnostic Findings EKG tracings performed last evening and again this morning outlined in the history of present illness. Bifascicular block pattern also noted on EKG performed as an outpatient May,.
--- NOTE | 2019-08-09 09:09 | Pre Anesthesia Assessment ---
Date of Service August 09, 2019 Pre Sedation Assessment Vital Signs Temp Pulse Pulse Pulse Resp BP Pulse Ox 08/10/19 11:43 36.7 C 60 18 107/64 96 08/10/19 07:30 36.5 C 65 18 119/66 94 08/10/19 04:02 36.4 C L 64 21 108/68 93 08/10/19 00:00 63 08/09/19 23:31 36.4 C L 63 20 111/62 97 08/09/19 18:44 36.4 C L 68 17 108/60 95 08/09/19 15:59 68 08/09/19 15:42 36.3 C L 64 18 100/61 95 08/09/19 15:06 36.4 C L 65 17 118/72 94 Cardiovascular + regular rate and + regular rhythm + S1 normal and + S2 normal; no murmur + femoral pulses present and + radial pulses present; no JVD + edema (Trace bilateral pedal edema.) Respiratory normal respiratory effort, lungs clear to auscultation Pre-Sedation Airway Assessment Smoking Status: Former smoker Mallampati Class: III ASA: ASA4 Procedure Planning Contraindications for Sedation: none Current Medications Reviewed: Yes Notes The planned sedation has been discussed with the patient. Informed Consent was obtained. I have identified the patient, determined the appropriateness of sedation and have assessed the patient immediately prior to the procedure. All medicine(s) and interventions are by my order.
--- NOTE | 2019-08-09 09:10 | Hospitalist Progress Note ---
Date of Service August 09, 2019 Assessment & Plan (1) Chest pain: NSTEMI Presented with atypical chest pain/chest pressure without any associated anginal symptoms History of CAD status post CABG x3 years ago, last echo few years back and details are not known. EKG showed right bundle with associated ST-T wave changes Troponin was 0.057 on admission and that went up to 1.760 this morning Has been on intravenous heparin, oral beta-marisol and will add sublingual nitro as needed Cardiology consulted-appreciate input and recommendation Status post cardiac cath Successful PCI of proximal to mid RCA with single drug-eluting stent (3.5 x 38 mm Uri; postdilated with 3.75 NC). Recommendations: To PCU for continued monitoring Loaded with ticagrelor 180 mg in [place] Continue dual-antiplatelet therapy for at least 1 year Continue statin, and ASCVD risk factor modification (2) CAD (coronary artery disease): CAD status post CABG x3 about 15 years back Last cardiac cath about 5 to 6 years back-details not known Symptomatic as above (3) Diabetes: Has type 2 diabetes requiring insulin Hemoglobin A1c is 8.5 Continue SSI (4) Hypertension: Remains controlled Continue current medications Admission and Anticipated Discharge Date Admission Date: August 09, 2019 Subjective The patient was seen and examined in telemetry unit Is a 64 years old obese male with significant past medical history of CAD status post CABG many years back, hypertension hyperlipidemia and diabetes requiring insulin was admitted yesterday with chest pressure/pain He complained some chest pressure this morning without any associated symptoms suggestive of angina He denies any other significant symptoms Review of Systems Review of Systems: All systems reviewed and are unremarkable except as noted below Cardiovascular: + chest pain (Central chest pressure without any associated symptoms) and + edema; no dyspnea at rest and no palpitations Physical Exam Physical Exam: Lying in bed comfortably Constitutional: well developed, well nourished and + obese; no acute distress and not ill appearing Eyes: PERRL, conjunctivae normal, anicteric sclerae ENMT: external ear and nose normal, oropharynx normal Neck: trachea midline, no thyromegaly Respiratory: normal respiratory effort Auscultation: lungs clear to auscultation bilaterally; no crackles and no wheezes Cardiovascular: Rate/Rhythm: regular rate and regular rhythm Heart Sounds: no murmur Gastrointestinal (Abdomen): Inspection/Auscultation: abdomen normal to inspection and normal bowel sounds Percussion/Palpation: abdomen soft; abdomen nontender Musculoskeletal: No acute arthritis in any joints Neurologic: moves all extremities; no focal motor deficits Results & Data ([facility]) Vital Signs (Past 12 Hours) Vital Signs Temp Pulse Pulse Pulse Resp BP BP 08/09/19 07:18 36.4 C L 74 18 142/77 H 08/09/19 03:59 36.6 C 75 19 118/77 08/09/19 03:28 159/77 H 08/09/19 01:50 36.7 C 81 18 189/77 H 08/09/19 01:48 77 08/09/19 01:00 77 20 138/71 08/09/19 00:34 80 24 146/69 H 08/09/19 00:30 81 19 164/78 H 08/09/19 00:00 78 18 131/64 08/08/19 23:32 08/08/19 23:09 76 18 136/62 08/08/19 23:00 08/08/19 22:25 36.5 C 88 20 157/90 H Pulse Ox 08/09/19 07:18 96 08/09/19 03:59 96 08/09/19 03:28 08/09/19 01:50 95 08/09/19 01:48 08/09/19 01:00 97 08/09/19 00:34 97 08/09/19 00:30 97 08/09/19 00:00 95 08/08/19 23:32 94 08/08/19 23:09 94 08/08/19 23:00 94 08/08/19 22:25 95 Laboratory Results Short CBC 08/08/19 08/09/19 Range/Units 22:42 07:01 WBC 8.81 8.03 (4.8-10.8) K/uL Hgb 16.2 14.8 (14.0-18.0) g/dL Hct 46.4 43.7 (42-52) % Plt Count 203 200 (130-400) K/uL BMP 08/08/19 08/09/19 22:42 07:01 Sodium 137 139 Potassium 3.6 3.6 Chloride 103 106 Carbon Dioxide 26 28 BUN 15 14 Creatinine 1.17 1.04 Glucose 215 H 129 H Calcium 9.1 8.9 Cardiac Enzymes 08/08/19 08/09/19 Range/Units 22:42 07:01 Total Creatine Kinase 95 (39-308) U/L Troponin I 0.057 H* 1.760 H* (0-0.045) ng/ml Liver Function 08/08/19 Range/Units 22:42 Total Bilirubin 0.5 (0.2-1) mg/dl AST 21 (15-37) U/L ALT 32 (12-78) U/L Alkaline Phosphatase 81 (45-117) U/L Albumin 3.5 (3.4-5.0) gm/dl Medications Administered Current Inpatient Medications Acetaminophen (Tylenol) 650 mg PO Q4H PRN PRN Reason: Pain or Fever Stop: 09/08/19 01:39 Aspirin (Ecotrin Ectab) 81 mg PO DAILY [facility] Stop: 09/08/19 08:59 Atenolol (Tenormin) 12.5 mg PO QAM [facility] Stop: 09/08/19 08:59 Atorvastatin Calcium (Lipitor) 20 mg PO DAILY [facility] Stop: 09/08/19 08:59 Dextrose (Dextrose 50%) 25 - 50 ml IV UD PRN; Protocol PRN Reason: Hypoglycemia Protocol Stop: 09/08/19 01:39 Glucagon (Glucagen) 1 mg SQ UD PRN; Protocol PRN Reason: Hypoglycemia Protocol Stop: 09/08/19 01:39 Glucose (Dex4 Glucose) 4 - 8 tabs PO UD PRN; Protocol PRN Reason: Hypoglycemia Protocol Stop: 09/08/19 01:39 Glucose (Glucose 40%) 15 - 30 gm PO UD PRN; Protocol PRN Reason: Hypoglycemia Protocol Stop: 09/08/19 01:39 Heparin Sodium/Dextrose (Heparin Sodium/Dextrose) 25,000 units in 500 mls @ 37 mls/hr IV .[id number] [facility]; Protocol Stop: 09/08/19 00:44 Last Titration: 08/09/19 07:54 Dose: 1,850 units/hr, 37 mls/hr Documented by: Potassium Chloride/Sodium Chloride (Normal Saline W/20 Meq Kcl) 20 meq in 1,000 mls @ 40 mls/hr IV .Q24H [facility] Stop: 09/08/19 01:39 Last Admin: 08/09/19 02:16 Dose: 40 mls/hr Documented by: Promethazine HCl 12.5 mg/ (Sodium Chloride) 50.5 mls @ 202 mls/hr IV Q6H PRN PRN Reason: Nausea And Vomiting Stop: 09/08/19 01:39 Lorazepam (Ativan) 0.5 mg in 1 mls @ 1 mls/min IV Q4H PRN PRN Reason: Anxiety/Agitation Stop: 09/08/19 01:39 Insulin Aspart (Novolog Flexpen) 0 units SC ACHS [facility] Stop: 09/08/19 01:39 Last Admin: 08/09/19 08:07 Dose: Not Given Documented by: Insulin Glargine (Lantus Solostar Pen) 10 units SC BID [facility] Stop: 09/08/19 08:59 Lisinopril (Zestril) 10 mg PO DAILY [facility] Stop: 09/09/19 08:59 Miscellaneous (Carbohydrates For Hypoglycemia) 15 - 30 gm PO UD PRN PRN Reason: Hypoglycemia Protocol Stop: 09/08/19 01:39 Morphine Sulfate (Morphine Sulfate) 4 mg IV Q4H PRN PRN Reason: Pain Stop: 08/23/19 01:39 Multivitamins (Multivitamin Tab) 1 tab PO DAILY [facility] Stop: 09/08/19 08:59 Nitroglycerin (Nitrostat) 0.4 mg SL PRN PRN; Protocol PRN Reason: Chest Pain Stop: 09/08/19 08:28 Tramadol HCl (Ultram) 25 - 50 mg PO Q4H PRN PRN Reason: Pain Stop: 09/08/19 01:39 (1) Chest pain Chest pain type: precordial pain Qualified Code(s): R07.2 - Precordial pain
[2019-08-09] MEDS ORDERED: MIDAZOLAM HCL 1 MG/ML 2ML VIAL ONE ×2 (09:40→10:29)
[2019-08-09] MEDS ORDERED: fentaNYL citrate 100 MCG/2 ML VIAL ONE ×2 (09:40→11:23)
[2019-08-09] MEDS ORDERED: NiCARDipine HCL INJ 2.5 MG/ML 10 ML AMP ONE ×2 (09:40→11:03)
[2019-08-09] MEDS ORDERED: HEPARIN (PORCINE) 1000 UNIT/ML 10 ML (CATH LAB USE ONLY) ONE (09:40)
[2019-08-09] MEDS ORDERED: NITROGLYCERIN/D5W 100MCG/ML 20ML SYR ONE (09:41)
--- NOTE | 2019-08-09 11:05 | Post Anesthesia Assessment ---
Date of Service August 09, 2019 Post Sedation Assessment Vital Signs Temp Pulse Pulse Pulse Resp BP Pulse Ox 08/10/19 11:43 36.7 C 60 18 107/64 96 08/10/19 07:30 36.5 C 65 18 119/66 94 08/10/19 04:02 36.4 C L 64 21 108/68 93 08/10/19 00:00 63 08/09/19 23:31 36.4 C L 63 20 111/62 97 08/09/19 18:44 36.4 C L 68 17 108/60 95 08/09/19 15:59 68 08/09/19 15:42 36.3 C L 64 18 100/61 95 08/09/19 15:06 36.4 C L 65 17 118/72 94 Recovery Score Activity: Moves 4 extremities Respiration: Deep Breath/Cough Circulation: +/-20% PreAnes Value Consciousness: Fully Awake Oxygen Saturation: > 92% On Room Air Discharge Sedation Level of Care: Phase I Post Sedation Plan On clinical assessment, the patient appears to have tolerated the sedation wit hout complications. Patient is recovering as anticipated. Patient will continue to be monitored by nursing and may be discharged when sedation discharge criteria are met per below protocol. Upon Completions of procedure up to 15 minutes continue every 5 minute vital signs and the P.A.R. score; then discharge to a Phase I or Fast Track to Phase II per the following guidelines: * Discharge Patient to appropriate Phase II area if PAR is 8 or greater or return to pre- procedure baseline. The post - procedure orders will be as directed. * If PAR score is less than 8 or not return to pre-procedure baseline then patient will follow Phase I monitoring till PAR is reached for Phase II. The Phase I may be done in procedure room or may call to secure a Phase I area. * If naloxone or flumazenil are used for reversal, hold in Phase I for continued monitoring from when last reversal dose was given for a minimum of 60 minutes or longer pending the nurse and/or physician discretion of patient condition before discharge to Phase II. Please call the Sedation Physician to re-evaluate and complete post-note for discharge to Phase II area. Do NOT discharge from procedure sedation or Phase 1 until post- sedation evaluation note is complete by procedure /sedation MD Sedation Discharge Instructions to be given to the patient at discharge to home.
--- NOTE | 2019-08-09 11:19 | Cardiac Catheterization ---
Cardiac Cath Procedure Full Procedure Date August 09, 2019 Pre-Procedure Diagnosis Pre-Procedure Diagnosis: Non STEMI AUC Score AUC Score: 8 Post-Procedure Diagnosis Post-Procedure Diagnosis: Severe CAD Procedure(s) Performed Procedure(s) Performed: Coronary Angiography, Bypass Graft Angiography and Femoral Artery Angiography Tube And Manifold Builder Jesse Reece DO Pig Lead Melter Helper(s) Mayelin ELECTRIC TRUCKER Estimated Blood Loss Estimated Blood Loss: 10cc Medication(s) Medication(s): Fentanyl, Lidocaine 1% and Lorazepam Summary of Findings Coronary angiography demonstrates severe kaibab vessel disease. Coronary anatomy is right dominant. The left main is a large-caliber vessel which bifurcates left anterior descending and left circumflex artery. Mild distal left main stenosis, 10%. The LAD is a large-caliber vessel with mild disease in the proximal segment. The LAD is 100% occluded in the proximal segment adjacent to the origin of a moderate diagonal branch vessel. He mid to distal LAD is visualized during bypass graft angiography of the left internal mammary artery. The mid to distal vessel is small demonstrating mild luminal irregularities with stenosis ranging from 10 to 20%. The LAD gives rise to small collaterals to the right posterior descending and right posterior lateral arteries. The diagonal branch vessel is a small to moderate caliber with a 60% proximal stenosis and a 50% mid stenosis. The left circumflex is a small nondominant vessel with 100% occlusion proximally. Lcx gives rise to a diminutive first obtuse marginal branch vessel which is severely diseased proximally, 80%, (1 mm vessel) and an atrial branch. The right coronary artery demonstrates a 100% proximal occlusion. The right coronary artery appears to be a large vessel giving rise to posterior descending and posterior lateral branch vessels on bypass graft angiography being filled retrograde via collaterals from the LAD and obtuse marginal branch vessel. Bypass graft angiography: The ACHARYA to the LAD is widely patent. The LAD gives rise to collaterals to the right coronary artery as well as to obtuse marginal branch vessel of the left circumflex. Saphenous vein graft to obtuse marginal branch vessel is patent without significant stenosis. The sequential saphenous vein graft to the diagonal branch vessel is occluded. The OM vessel demonstrates mild luminal irregularities, however, tapers down to a small, 1 mm vessel distally. There are scant left to right collaterals from the obtuse marginal branch vessel filling the right posterior lateral artery. Hemodynamics Rest Ao:: 114/55/110 Final Ao: 139/79/118 LV: N/A Recommendations Recommendations: PCI without planned CABG (The right coronary artery is not bypass and appears to be an acute on chronic occlusion with evidence of left to right collaterals from the LAD and left circumflex systems. Percutaneous intervention recommended.) Specimens Specimens: None Radiation Exposure (mGy) 2669 Contrast (mls) 110 Fluids (cc crystalloids) Fluids (cc crystalloids): 160 Nss Drains Drains: n/A Anesthesia mderate sedation. Start 0951. End 1053. Sedation monitor: Corey KERR Procedural Complication(s) None Disposition Patient remained in [employer] for PCI of the right coronary artery. I attest to the content of the Intraoperative Record and any orders documented therein. Any exceptions are noted below. ACC Data: [employer] Cardiac Status Clinical evaluation leading to the procedure CAD Presenation: Non STEMI Anginal Classification: CCS IV Heart Failure: No Cardiogenic Shock within 24 Hours: No Cardiac Arrest within 24 Hours: No Imaging Studies Past 6 Months: No Stress Studies Past 6 Months: No STEMI OR Non-STEMI Symptom Onset Date: 08/08/19 Symptom Onset Time: 10:03 Thrombolytics: No Coronary Anatomy Dominant: Right Left Main (% Stenosis): Distal (10%) LAD (% Stenosis): Proximal (100%) D1 (% Stenosis): Proximal (60%) and Mid (50%) Circumflex (% Stenosis): Proximal (100%) OM1 (% Stenosis): Proximal (80% , small 1mm vessel) OM2 (% Stenosis): Proximal (100%) RCA (% Stenosis): Proximal (100%) Grafts - LAD (%): Normal Grafts - Circumflex (%): Normal (Patent SVG graft to obtuse marginal branch vessel with occluded sequential SVG graft to diagonal branch vessel.) Diagnostic Physicians Name: Jesse Reece DO Status: Urgent Closure Device Percutaneous Entry Location: Femoral Recommendations: PCI without planned CABG (The right coronary artery is not bypass and appears to be an acute on chronic occlusion with evidence of left to right collaterals from the LAD and left circumflex systems. Percutaneous intervention recommended.) Intraprocedure Events Significant Disection: No Perforation: No
[2019-08-09] MEDS ORDERED: TICAGRELOR 90 MG TAB PO ONE (11:49)
--- NOTE | 2019-08-09 11:54 | Post Anesthesia Assessment ---
Date of Service August 09, 2019 Post Sedation Assessment Vital Signs Temp Pulse Pulse Pulse Resp BP BP 08/09/19 09:27 74 17 127/71 08/09/19 07:18 97.5 F L 74 18 142/77 H 08/09/19 03:59 97.9 F 75 19 118/77 08/09/19 03:28 159/77 H 08/09/19 01:50 98.1 F 81 18 189/77 H 08/09/19 01:48 77 08/09/19 01:00 77 20 138/71 08/09/19 00:34 80 24 146/69 H 08/09/19 00:30 81 19 164/78 H 08/09/19 00:00 78 18 131/64 08/08/19 23:32 08/08/19 23:09 76 18 136/62 08/08/19 23:00 08/08/19 22:25 97.7 F 88 20 157/90 H Pulse Ox 08/09/19 09:27 95 08/09/19 07:18 96 08/09/19 03:59 96 08/09/19 03:28 08/09/19 01:50 95 08/09/19 01:48 08/09/19 01:00 97 08/09/19 00:34 97 08/09/19 00:30 97 08/09/19 00:00 95 08/08/19 23:32 94 08/08/19 23:09 94 08/08/19 23:00 94 08/08/19 22:25 95 Recovery Score Activity: Moves 4 extremities Respiration: Deep Breath/Cough Circulation: +/-20% PreAnes Value Consciousness: Fully Awake Oxygen Saturation: > 92% On Room Air Discharge Sedation Level of Care: Fast Track Phase II Post Sedation Plan On clinical assessment, the patient appears to have tolerated the sedation without complications. Patient is recovering as anticipated. Patient will continue to be monitored by nursing and may be discharged when sedation discharge criteria are met per below protocol. Upon Completions of procedure up to 15 minutes continue every 5 minute vital signs and the P.A.R. score; then discharge to a Phase I or Fast Track to Phase II per the following guidelines: * Discharge Patient to appropriate Phase II area if PAR is 8 or greater or return to pre- procedure baseline. The post - procedure orders will be as dir ected. * If PAR score is less than 8 or not return to pre-procedure baseline then patient will follow Phase I monitoring till PAR is reached for Phase II. The Phase I may be done in procedure room or may call to secure a Phase I area. * If naloxone or flumazenil are used for reversal, hold in Phase I for continued monitoring from when last reversal dose was given for a minimum of 60 minutes or longer pending the nurse and/or physician discretion of patient condition before discharge to Phase II. Please call the Sedation Physician to re-evaluate and complete post-note for discharge to Phase II area. Do NOT discharge from procedure sedation or Phase 1 until post- sedation evaluation note is complete by procedure /sedation MD Sedation Discharge Instructions to be given to the patient at discharge to home.
--- NOTE | 2019-08-09 12:00 | Cardiac Catheterization ---
[facility] Data: Geospatial Program Management Officer Cardiac Status Clinical evaluation leading to the procedure CAD Presenation: Non STEMI Anginal Classification: CCS IV Heart Failure: No Cardiogenic Shock within 24 Hours: No Cardiac Arrest within 24 Hours: No Imaging Studies Past 6 Months: Yes Stress Studies Past 6 Months: No Diagnostic Physicians Name: Cresencio Lawrence MD Status: Elective Closure Device Percutaneous Entry Location: Radial Recommendations: PCI without planned CABG PCI Indication: PCI for high risk Non-DOMO Lesion Segment Name: Proximal RCA Culprit Artery: Yes Stenosis Prior to Rx (%): 100 Chronic Total Occlusion: Yes IVUS: No FFR: No Pre-Procedure MIN Flow: 0 Previously Treated Lesion: No Lesion Complexity: Non-High/Non-C Lesion Length (mm): 30 Thrombus Present: Yes Bifurcation Lesion: No Guidewire Across Lesion: Stenosis Post-Procedure (%): 0 Post-Procedure MIN Flow: 3 Devices(s) Deployed: Yes Yes Intraprocedure Events Significant Disection: No Perforation: No Cardiac Cath Procedure Full Procedure Date August 09, 2019 Pre-Procedure Diagnosis Pre-Procedure Diagnosis: Non STEMI AUC Score AUC Score: 8 Post-Procedure Diagnosis Post-Procedure Diagnosis: Severe CAD and Successful PCI Procedure(s) Performed Procedure(s) Performed: Drug Eluting Stent Home Teaching Grades 9 Thru 12 Teacher Cresencio Lawrence MD Senior Trainer(s) Mayelin TY Estimated Blood Loss Estimated Blood Loss: 15 Medication(s) Medication(s): Fentanyl, Heparin, Lidocaine 1%, Nicardipine, Nitroglycerin and Versed Medication(s): Ticagrelor Summary of Findings Indication: High risk NSTEMI Access: 6 Fr right common femoral artery Catheters: AR-1 guide Findings: For full details of patient's coronary angiography please see cath report dictated by Dr. Reece. Briefly, patient found to have an acute on chronic proximal RCA occlusion with [id number] collaterals. Decision to proceed with PCI. -- PCI -- Antithrombotic therapy: Heparin, ticagrelor Procedure: RCA cannulated with AR-1 guide Mold Car Pusher 50 wire passed across lesion into distal vessel Proximal RCA lesion predilated with 2.5 compliant balloon Dilated lesion stented with 3.5 x 38 mm Uri drug-eluting stent from proximal to mid vessel Stent post-dilated with 3.75 noncompliant balloon IC vasodilators administered for spasm Post procedure MIN 3 flow, stent well expanded with minimal residual stenosis and no apparent cardiac complications. Arterial Closure: Angio-Seal Summary: 1. Successful PCI of proximal to mid RCA with single drug-eluting stent (3.5 x 38 mm [place]; postdilated with 3.75 NC). Recommendations: To PCU for continued monitoring Loaded with ticagrelor 180 mg in Geospatial Program Management Officer Continue dual-antiplatelet therapy for at least 1 year Continue statin, and ASCVD risk factor modification Hemodynamics Rest Ao:: 120/58/84 Final Ao: 96/52/69 LV: -- Recommendations Recommendations: PCI without planned CABG Specimens Specimens: None Radiation Exposure (mGy) 3754 Contrast (mls) 130 Fluids (cc crystalloids) Fluids (cc crystalloids): 100 Anesthesia mderate sedation. Procedural Complication(s) None Disposition PCU I attest to the content of the Intraoperative Record and any orders documented therein. Any exceptions are noted below. [facility] Card Cath Procedure Codes Moderate Sedation Procedure 1: Sedation/Anesthesia: 74631 Mod Sedation by a different physician ;Init15 Min Child Age 5&Up Stenting Procedure 1: Cardiovascular Stent Procedures: 43117 Perc transluminal revascularization of chronic total occlusion, PG Care Time/CCT Total # of Minutes Spent Total Time Spent with Patient: Total time spent is greater than 50% in coordination of care (as documented) at patient's floor/unit and/or counseling patient:
[2019-08-09] MEDS ORDERED: SODIUM CHLORIDE 0.9% 1000ML 1,000 ML IV SCH (12:15)
[2019-08-09] MEDS: ATORVASTATIN 20 MG TAB PO SCH (13:03)
[2019-08-09] MEDS: ATENOLOL 25 MG TABLET PO SCH (13:03)
[2019-08-09] MEDS: MULTIVITAMIN TAB PO SCH (13:03)
[2019-08-09] MEDS: INSULIN GLARGINE SOLOSTAR 100 UNITS/ML 3 ML PEN SC SCH ×2 (13:20→21:18)
[2019-08-09] MEDS ORDERED: ONDANSETRON INJ 2 MG/ML 2 ML VIAL IV PRN (14:44)
--- NOTE | 2019-08-09 16:25 | Communication Note ---
Date of Service: August 09, 2019 Contacted pt's pharmacy, [facility], out of pocket cost for Brilinat 90 mg BID, 60 talbs is $45 . Rx available for excelsior picker at time of discharge. If plan changes, this will need to be cancelled.
--- NOTE | 2019-08-09 18:08 | Electrocardiogram Report ---
Test Reason : Blood Pressure : / mmHG Vent. Rate : 070 BPM Atrial Rate : 070 BPM P-R Int : 186 ms QRS Dur : 132 ms QT Int : 430 ms P-R-T Axes : 001 -32 046 degrees QTc Int : 464 ms Normal sinus rhythm Left axis deviation Right bundle branch block Abnormal ECG When compared with ECG of 08-AUG-2019 22:30, Premature ventricular complexes are no longer Present Premature atrial complexes are no longer Present Confirmed by Norm Suh ([id number]) on 08/09/2019 6:08:17 PM Referred By: REFERRED SELF Confirmed By:Norm Suh
--- NOTE | 2019-08-09 18:22 | Electrocardiogram Report ---
Test Reason : Blood Pressure : / mmHG Vent. Rate : 063 BPM Atrial Rate : 063 BPM P-R Int : 192 ms QRS Dur : 128 ms QT Int : 446 ms P-R-T Axes : 000 -36 056 degrees QTc Int : 456 ms Normal sinus rhythm with sinus arrhythmia Premature atrial complexes Left axis deviation Right bundle branch block Possible Inferior infarct Abnormal ECG When compared with ECG of 09-AUG-2019 08:18, Premature atrial complexes are now Present Confirmed by Norm Suh ([id number]) on 08/09/2019 6:21:47 PM Referred By: REFERRED SELF Confirmed By:Norm Suh
[2019-08-09] MEDS: TICAGRELOR 90 MG TAB PO SCH (21:18)
[2019-08-10 07:04] LABS: Basophils # (auto) 0.01 K/uL (0-0.2); Basophils % (auto) 0.1 %; Eosinophils # (auto) 0.11 K/uL (0-0.5); Eosinophils % (auto) 1.2 %; Hematocrit (blood only) 42.2 % (42-52); Hemoglobin 14.3 g/dL (14.0-18.0); Immature Granulocytes # (auto) 0.03 K/uL (0.00-0.02); Immature Granulocytes % (auto) 0.3 %; Lymphocytes # (auto) 1.92 K/uL (1.2-3.4); Lymphocytes % (auto) 20.8 %; Mean Corpuscular Hemoglobin 30.9 pg (25-34); Mean Corpuscular Hgb Conc 33.9 g/dL (32-36); Mean Corpuscular Volume 91.1 fL (80-100); Mean Platelet Volume 9.9 fL (7.4-10.4); Monocytes # (auto) 0.82 K/uL (0.11-0.59); Monocytes % (auto) 8.9 %; Neutrophils # (auto) 6.32 K/uL (1.4-6.5); Neutrophils % (auto) 68.7 %; Platelet Count 193 K/uL (130-400); RDW Standard Deviation 43.4 fL (36.4-46.3); Red Blood Count 4.63 M/uL (4.7-6.1); White Blood Count 9.21 K/uL (4.8-10.8)
[2019-08-10 07:44] LABS: BUN Creatinine Ratio 16.4 (10-20); Calcium 8.4 mg/dl (8.5-10.1); Creatinine Clr Calc Pharmacy 108.4 ml/min; Est GFR (African American) 102.8; Est GFR (Non-African American) 88.7; Magnesium 2.1 mg/dl (1.8-2.4); Potassium 3.7 mmol/L (3.5-5.1)
[2019-08-10] MEDS: MULTIVITAMIN TAB PO SCH (07:44)
[2019-08-10] MEDS: TICAGRELOR 90 MG TAB PO SCH (07:44)
[2019-08-10] MEDS: ATORVASTATIN 20 MG TAB PO SCH (07:44)
[2019-08-10] MEDS: ATENOLOL 25 MG TABLET PO SCH (07:44)
[2019-08-10] MEDS: INSULIN GLARGINE SOLOSTAR 100 UNITS/ML 3 ML PEN SC SCH (07:45)
[2019-08-10] MEDS: INSULIN ASPART 100 UNITS/ML 3 ML PEN SC SCH ×2 (07:46→12:21)
[2019-08-10 08:01] LABS: Albumin Globulin Ratio 0.9 (0.9-2); Bilirubin,Total 0.6 mg/dl (0.2-1); Globulin 3.5 gm/dl (2.5-4.0); Phosphorus 2.7 mg/dl (2.5-4.9); Total Protein 6.5 gm/dl (6.4-8.2)
[2019-08-10] MEDS ORDERED: ASPIRIN 81 MG ECTAB PO SCH (09:00)
[2019-08-10] MEDS ORDERED: lisinopriL 10 MG TAB PO SCH (09:00)
--- NOTE | 2019-08-10 10:32 | Hospitalist Progress Note ---
Date of Service August 10, 2019 Assessment & Plan (1) Chest pain: NSTEMI Presented with atypical chest pain/chest pressure without any associated anginal symptoms History of CAD status post CABG x3 years ago, last echo few years back and details are not known. EKG showed right bundle with associated ST-T wave changes Troponin was 0.057 on admission and that went up to 1.760 this morning Has been on intravenous heparin, oral beta-marisol and will add sublingual nitro as needed Status post cardiac cath with successful PCI of proximal to mid RCA with single drug-eluting stent (3.5 x 38 mm Uri: Postdilated with 3.75 NC) Remains stable without any symptoms following the procedure Like to be discharged this afternoon Status post cardiac cath Successful PCI of proximal to mid RCA with single drug-eluting stent (3.5 x 38 mm [place]; postdilated with 3.75 NC). Recommendations: To PCU for continued monitoring Loaded with ticagrelor 180 mg in Garbage Collection Supervisor Continue dual-antiplatelet therapy for at least 1 year Continue statin, and ASCVD risk factor modification Remains free prolapse symptoms and no arrhythmias on monitor (2) CAD (coronary artery disease): CAD status post CABG x3 about 15 years back Last cardiac cath about 5 to 6 years back-details not known Symptomatic as above (3) Diabetes: Has type 2 diabetes requiring insulin Hemoglobin A1c is 8.5 Continue SSI (4) Hypertension: Remains controlled Continue current medications Admission and Anticipated Discharge Date Admission Date: August 09, 2019 Anticipated date of discharge: 08/10/19 Subjective The patient was seen and examined in telemetry unit Is a 64 years old obese male with significant past medical history of CAD status post CABG many years back, hypertension hyperlipidemia and diabetes requiring insulin was admitted yesterday with chest pressure/pain He complained some chest pressure this morning without any associated symptoms suggestive of angina He denies any other significant symptoms 08/10/2019 The patient was seen and examined in telemetry unit He is a status post cardiac cath and drug-eluting stent in SGI vessel Denies any symptoms as of this morning Review of Systems Review of Systems: All systems reviewed and are unremarkable except as noted below Cardiovascular: + edema; no chest pain (Central chest pressure without any associated symptoms), no dyspnea at rest and no palpitations Physical Exam Physical Exam: Lying in bed comfortably Constitutional: well developed, well nourished and + obese; no acute distress and not ill appearing Eyes: PERRL, conjunctivae normal, anicteric sclerae ENMT: external ear and nose normal, oropharynx normal Neck: trachea midline, no thyromegaly Respiratory: normal respiratory effort Auscultation: lungs clear to auscultation bilaterally; no crackles and no wheezes Cardiovascular: Rate/Rhythm: regular rate and regular rhythm Heart Sounds: no murmur Gastrointestinal (Abdomen): Inspection/Auscultation: abdomen normal to insp ection and normal bowel sounds Percussion/Palpation: abdomen soft; abdomen nontender Musculoskeletal: No acute arthritis in any joints Neurologic: moves all extremities; no focal motor deficits Results & Data ([facility]) Vital Signs (Past 12 Hours) Vital Signs Temp Pulse Pulse Pulse Resp BP Pulse Ox 08/10/19 07:30 36.5 C 65 18 119/66 94 08/10/19 04:02 36.4 C L 64 21 108/68 93 08/10/19 00:00 63 08/09/19 23:31 36.4 C L 63 20 111/62 97 Laboratory Results Short CBC 08/10/19 Range/Units 06:53 WBC 9.21 (4.8-10.8) K/uL Hgb 14.3 (14.0-18.0) g/dL Hct 42.2 (42-52) % Plt Count 193 (130-400) K/uL BMP 08/10/19 06:53 Sodium 139 Potassium 3.7 Chloride 108 H Carbon Dioxide 25 BUN 15 Creatinine 0.90 Glucose 131 H Calcium 8.4 L Liver Function 08/10/19 Range/Units 06:53 Total Bilirubin 0.6 (0.2-1) mg/dl AST 36 (15-37) U/L ALT 27 (12-78) U/L Alkaline Phosphatase 72 (45-117) U/L Albumin 3.0 L (3.4-5.0) gm/dl Medications Administered Current Inpatient Medications Acetaminophen (Tylenol) 650 mg PO Q4H PRN PRN Reason: Pain or Fever Stop: 09/08/19 01:39 Aspirin (Ecotrin Ectab) 81 mg PO [facility] Stop: 09/09/19 08:59 Last Admin: 08/10/19 07:44 Dose: 81 mg Documented by: Atenolol (Tenormin) 12.5 mg PO [facility] Stop: 09/08/19 08:59 Last Admin: 08/10/19 07:44 Dose: 12.5 mg Documented by: Atorvastatin Calcium (Lipitor) 20 mg PO DAILY [facility] Stop: 09/08/19 08:59 Last Admin: 08/10/19 07:44 Dose: 20 mg Documented by: Dextrose (Dextrose 50%) 25 - 50 ml IV UD PRN; Protocol PRN Reason: Hypoglycemia Protocol Stop: 09/08/19 01:39 Glucagon (Glucagen) 1 mg SQ UD PRN; Protocol PRN Reason: Hypoglycemia Protocol Stop: 09/08/19 01:39 Glucose (Dex4 Glucose) 4 - 8 tabs PO UD PRN; Protocol PRN Reason: Hypoglycemia Protocol Stop: 09/08/19 01:39 Glucose (Glucose 40%) 15 - 30 gm PO UD PRN; Protocol PRN Reason: Hypoglycemia Protocol Stop: 09/08/19 01:39 Promethazine HCl 12.5 mg/ (Sodium Chloride) 50.5 mls @ 202 mls/hr IV Q6H PRN PRN Reason: Nausea And Vomiting Stop: 09/08/19 01:39 Lorazepam (Ativan) 0.5 mg in 1 mls @ 1 mls/min IV Q4H PRN PRN Reason: Anxiety/Agitation Stop: 09/08/19 01:39 Insulin Aspart (Novolog Flexpen) 0 units SC ACHS [facility] Stop: 09/08/19 01:39 Last Admin: 08/10/19 07:46 Dose: 4 units Documented by: Insulin Glargine (Lantus Solostar Pen) 10 units SC BID [facility] Stop: 09/08/19 08:59 Last Admin: 08/10/19 07:45 Dose: 10 units Documented by: Lisinopril (Zestril) 10 mg PO DAILY [facility] Stop: 09/09/19 08:59 Last Admin: 08/10/19 07:43 Dose: 10 mg Documented by: Miscellaneous (Carbohydrates For Hypoglycemia) 15 - 30 gm PO UD PRN PRN Reason: Hypoglycemia Protocol Stop: 09/08/19 01:39 Morphine Sulfate (Morphine Sulfate) 4 mg IV Q4H PRN PRN Reason: Pain Stop: 08/23/19 01:39 Last Admin: 08/09/19 13:40 Dose: 4 mg Documented by: Multivitamins (Multivitamin Tab) 1 tab PO DAILY [facility] Stop: 09/08/19 08:59 Last Admin: 08/10/19 07:44 Dose: 1 tab Documented by: Nitroglycerin (Nitrostat) 0.4 mg SL PRN PRN; Protocol PRN Reason: Chest Pain Stop: 09/08/19 08:28 Ondansetron HCl (Zofran) 4 mg IV Q6H PRN PRN Reason: Nausea Stop: 09/08/19 14:43 Last Admin: 08/09/19 15:03 Dose: 4 mg Documented by: Ticagrelor (Brilinta) 90 mg PO BID [facility] Stop: 09/08/19 20:59 Last Admin: 08/10/19 07:44 Dose: 90 mg Documented by: Tramadol HCl (Ultram) 25 - 50 mg PO Q4H PRN PRN Reason: Pain Stop: 09/08/19 01:39 Last Admin: 08/09/19 13:02 Dose: 50 mg Documented by: (1) Chest pain Chest pain type: precordial pain Qualified Code(s): R07.2 - Precordial pain
--- NOTE | 2019-08-10 10:46 | Electrocardiogram Report ---
Test Reason : Blood Pressure : / mmHG Vent. Rate : 065 BPM Atrial Rate : 065 BPM P-R Int : 156 ms QRS Dur : 132 ms QT Int : 446 ms P-R-T Axes : -20 -39 014 degrees QTc Int : 463 ms Normal sinus rhythm Left axis deviation Right bundle branch block Inferior infarct , age undetermined Abnormal ECG When compared with ECG of 09-AUG-2019 12:25, Premature atrial complexes are no longer Present Confirmed by Cresencio Doshi ([id number]) on 08/10/2019 10:45:39 AM Referred By: REFERRED SELF Confirmed By:Harpreet Doshi
[2019-08-10 11:44] VITALS: BP 107/64; PULSE 60; TEMP 98.1; O2SAT 96
--- NOTE | 2019-08-10 13:21 | Cardiology Progress Note ---
Date of Service August 10, 2019 Assessment & Plan (1) NSTEMI (non-ST elevated myocardial infarction): (2) S/P right coronary artery (RCA) stent placement: (3) Dyslipidemia, goal LDL below 70: I had a long discussion with the patient regarding continuation of dual antiplatelet therapy uninterrupted for minimum of 12 months. He voiced understanding and agreement. Atorvastatin will be titrated to 40 mg daily. Other cardiovascular medications will be continued as previously ordered. Post cardiac catheterization activity restrictions listed below. Outpatient cardiology follow-up in 2 to 4 weeks. ACTIVITY RECOMMENDATIONS: It is common to feel weak and fatigue for a few days. * Do not drive or operate any motorized equipment for the next three days. * Limit stair usage (2 or 3 trips a day only) for the next three days. * Do not lift anything heavier than 10 pounds for the next three days. * Do not engage in vigorous exercise or any sports for the next five days. * You may shower the day after your procedure, but do not immerse the area for three days. Cleanse the site gently with soap and water. SPECIAL CARE INSTRUCTIONS: * You may replace the pressure dressing or band-aid the morning after the procedure. * After your procedure, it is normal to have a small bruise or small lump at the site. Examine your site daily for any change in the bruise or lump, redness, swelling, drainage or numbness. Notify your doctor if any change. BLEEDING: * If there is a small amount of bleeding at the site, lie down and apply firm pressure with a clean cloth for ten minutes. When the bleeding stops, lie quietly keeping the procedure limb straight for six hours. Notify your doctor as soon as possible. * If the bleeding does not stop after ten minutes or if there is a large amount of bleeding or spurting, call 911 immediately. Continue to lie down and hold firm pressure until help arrives. SKIN IRRITATION: * You may experience some redness and/or swelling in the area where radiation was administered. If any skin irritation occurs, please contact your family physician. FOLLOW UP VISIT: Keep any scheduled doctor appointments. Subjective Patient seen and examined the bedside. Patient feeling well from a cardiovascular perspective. No recurrent chest discomfort overnight. Sinus rhythm on telemetry. Denies groin discomfort. No ecchymosis or hematoma. No events reported by nursing staff. Tolerating a.m. meal and medications. Requesting discharge if possible. Review of Systems Review of Systems: All systems reviewed & are unremarkable except as noted in HPI & below Physical Exam Constitutional: well developed, well nourished and + obese Respiratory: normal respiratory effort; no respiratory distress and no labored breathing Auscultation: no crackles, no rales, no rhonchi and no wheezes Cardiovascular: Rate/Rhythm: regular rate Heart Sounds: normal S1 and normal S2; no gallop, no murmur and no cardiac rub Vessels: femoral pulses present and radial pulses present; no JVD Extremities: no edema Right groin without ecchymosis or hematoma. Gastrointestinal (Abdomen): Inspection/Auscultation: abdomen normal to inspection and normal bowel sounds; abdomen not distended Percussion/Palpation: abdomen soft; abdomen nontender, no guarding and abdomen not rigid Musculoskeletal: no cyanosis or clubbing, extremities motor strength 5/5 Head/Neck/Chest: normocephalic and head atraumatic Skin: no rashes, warm and dry Neurologic: moves all extremities; no focal motor deficits Psychiatric: A+Ox3, euthymic affect Results & Data Vital Signs (Past 12 Hours) Vital Signs Temp Pulse Pulse Resp BP Pulse Ox 08/10/19 11:43 36.7 C 60 18 107/64 96 08/10/19 07:30 36.5 C 65 18 119/66 94 08/10/19 04:02 36.4 C L 64 21 108/68 93
--- NOTE | 2019-08-11 08:28 | Discharge Summary ---
Date of Service August 11, 2019 Admission HPI Per Admitting Provider History obtained from patient and records. Medical history significant for CAD status post CABG, hypertension, hyperlipidemia, DM 2 insulin requiring, past tobacco abuse, GERD. Remote confinement December 2005 for right-sided heart failure, posterior pericardial effusion. Patient transferred to [facility] for further management. 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 Patient compliant with home meds. Admits to a little more stress than usual at the office due to pandemic. Spontaneous resolution of chest pain at the ER. Medical History as above Surgical History : CABG, appendectomy, left femur surgery, tonsillectomy/adenoidectomy Family History : Heart disease, diabetes Personal/Social history : Past tobacco abuse, rare EtOH intake, [employer] employee Admission Exam Per Admitting Provider Physical Exam: GENERAL: Comfortable, pleasant, obese, no respiratory distress SKIN: Normal color, warm HEENT: Partial alopecia, [employer] palpebral conjunctivae, no ptosis, dry buccal mucosa NECK : Supple, short neck, no tenderness CHEST : CTA, no tenderness HEART : RRR, no obvious murmurs ABDOMEN: Some distention, nontender EXTREMITIES : Minimal LE swelling, no LE tenderness, no other conspicuous deformities noted NEUROLOGIC : Coherent, no facial asymmetry, no other gross focality Principal Diagnosis NSTEMI, status post cardiac cath with right coronary artery stenting, CAD status post CABG timesx3 in past, hyperlipidemia, diabetes type 2 Discharge Exam Constitutional well developed, well nourished and + obese; no acute distress and not ill appearing Eyes PERRL, conjunctivae normal, anicteric sclerae ENMT external ear and nose normal, oropharynx normal Neck trachea midline, no thyromegaly Respiratory normal respiratory effort Auscultation: lungs clear to auscultation bilaterally; no crackles and no wheezes Cardiovascular Rate/Rhythm: regular rate and regular rhythm Heart Sounds: no murmur Gastrointestinal (Abdomen) Inspection/Auscultation: abdomen normal to inspection and normal bowel sounds Percussion/Palpation: abdomen soft; abdomen nontender Neurologic moves all extremities; no focal motor deficits Discharge Data Allergies Allergy/AdvReac Type Severity Reaction Status Date / Time No Known Allergies Allergy Mild Verified 08/08/19 22:59 Consultations 08/09/19 00:22 ED Decision to Admit Stat 08/09/19 01:40 Consult Cardiology Routine Procedures Performed Operation Date: 08/09/19 09:15 Actual Procedures p Drug Eluting Stent SGl Vessel - Niko Lawrence MD s Cineradiography w/Routine Exam - DO rashard Brenner Ultrasound Vascular Access - DO rashard Brenner Cath, Cors with Grafts (no LV) - DO rashard Brenner Placement Art Occlusive Device - Jesse Reece DO Ordered Studies 08/09/19 09:35 CL Cath Imgs for PACS use only Routine Hospital Course (1) Chest pain: NSTEMI Presented with atypical chest pain/chest pressure without any associated anginal symptoms History of CAD status post CABG x3 years ago, last echo few years back and details are not known. EKG showed right bundle with associated ST-T wave changes Troponin was 0.057 on admission and that went up to 1.760 this morning Has been on intravenous heparin, oral beta-marisol and will add sublingual nitro as needed Status post cardiac cath with successful PCI of proximal to mid RCA with single drug-eluting stent (3.5 x 38 mm [place]: Postdilated with 3.75 NC) Remains stable without any symptoms following the procedure Like to be discharged this afternoon Status post cardiac cath Successful PCI of proximal to mid RCA with single drug-eluting stent (3.5 x 38 mm [place]; postdilated with 3.75 NC). Recommendations: To PCU for continued monitoring Loaded with ticagrelor 180 mg in Development Director Continue dual-antiplatelet therapy for at least 1 year Continue statin, and ASCVD risk factor modification Remains free prolapse symptoms and no arrhythmias on monitor (2) CAD (coronary artery disease): CAD status post CABG x3 about 15 years back Last cardiac cath about 5 to 6 years back-details not known Symptomatic as above (3) Diabetes: Has type 2 diabetes requiring insulin Hemoglobin A1c is 8.5 Continue SSI (4) Hypertension: Remains controlled Continue current medications Total Time Total Time Spent Total Time Spent (In Minutes): 35 minutes Total Time Includes: Examination of the Patient, Discharge Planning, Medication Reconciliation and Communication With Other Providers Discharge Plan Discharge Items Patient Disposition: Home - Self-Care Reason For Visit: ACS Discharge Diagnosis: NSTEMI, status post cardiac cath with right coronary artery stenting, CAD status post CABG timesx3 in past, hyperlipidemia, diabetes type 2 Activity: Per Instructions section Non-emergency contact: Primary Care Provider Call non-emergency contact if: you have any medication questions and your symptoms worsen Follow-up/Referrals: Bruno Leiva MD [Primary Care Provider] - 08/14/19 3:30 pm (Outpatient cardiology follow-up in 2 to 4 weeks) Diet: Carb Consistent or DM2 and Heart Healthy Addtl Attending Provider Instructions: Please take your medications as advised You are advised to continue aspirin and Brilinta for at least 12 months Your atorvastatin has been increased to 40 mg daily and lisinopril to 10 mg daily Addtl Workforce Development Specialist Provider Instructions: It is common to feel weak and fatigue for a few days. * Do not drive or operate any motorized equipment for the next three days. * Limit stair usage (2 or 3 trips a day only) for the next three days. * Do not lift anything heavier than 10 pounds for the next three days. * Do not engage in vigorous exercise or any sports for the next five days. * You may shower the day after your procedure, but do not immerse the area for three days. Cleanse the site gently with soap and water. SPECIAL CARE INSTRUCTIONS: * You may replace the pressure dressing or band-aid the morning after the procedure. * After your procedure, it is normal to have a small bruise or small lump at the site. Examine your site daily for any change in the bruise or lump, redness, swelling, drainage or numbness. Notify your doctor if any change. BLEEDING: * If there is a small amount of bleeding at the site, lie down and apply firm pressure with a clean cloth for ten minutes. When the bleeding stops, lie quietly keeping the procedure limb straight for six hours. Notify your doctor as soon as possible. * If the bleeding does not stop after ten minutes or if there is a large amount of bleeding or spurting, call 911 immediately. Continue to lie down and hold firm pressure until help arrives. SKIN IRRITATION: * You may experience some redness and/or swelling in the area where radiation was administered. If any skin irritation occurs, please contact your family physician. FOLLOW UP VISIT: Keep any scheduled doctor appointments. Pending Studies at Discharge: No Stand-Alone Forms: My [employer], Smoking Cessation Medications and DC Order Prescriptions: New atorvastatin 40 mg Tablet 40 mg PO DAILY 30 Days Qty: 30 RF: 0 lisinopril 10 mg Tablet 10 mg PO DAILY 30 Days Qty: 30 RF: 0 Brilinta 90 mg Tablet 90 mg PO BID 30 Days Qty: 60 RF: 0 nitroglycerin [Nitrostat] 0.4 mg Tablet, Sublingual 0.4 mg sublingual PRN PRN (Reason: chest pain) 30 Days Qty: 25 RF: 0 Continued aspirin 81 mg Tablet,Delayed Release (Dr/Ec) 81 mg PO DAILY RF: 0 atenolol 25 mg Tablet 12.5 mg PO DAILY RF: 0 omega [id number] oil [Fish Oil] 1,000 mg (120 mg-180 mg) Capsule 3 cap PO DAILY RF: 0 hydrochlorothiazide 25 mg Tablet 25 mg PO UD RF: 0 insulin aspart U-100 [Novolog PenFill U-100 Insulin] 100 unit/mL Cartridge 1 sliding scale dose SUBCUT USEASDIRECTD RF: 0 Lantus U-100 Insulin 100 unit/mL Solution 31 unit SUBCUT BID RF: 0 metformin 1,000 mg Tablet 1,000 mg PO BID RF: 0 multivitamin Tablet 1 tab PO DAILY RF: 0 Januvia 100 mg Tablet 100 mg PO DAILY RF: 0 Jardiance 25 mg Tablet 25 mg PO DAILY RF: 0 Changed atorvastatin 20 mg Tablet 40 mg PO DAILY Qty: 0 RF: 0 lisinopril 5 mg Tablet 10 mg PO DAILY Qty: 0 RF: 0 Discharge Orders: Discharge Order (Routine); Ordered 08/10/19 Ordered By: Deni Hallman/Other Patient Handouts: Diabetes and Heart Disease, Diabetes Healthy Meals, Diabetes Exercise Benefits, Diabetes Living Life, Diabetes Manage A1C Test Admission Data Admit Date/Time: 08/09/19 00:41 Attending Provider: Deni Meza Admit Provider: Daniele Guevara Primary Care Provider: Bruno Leiva Other Providers: Daniele Guevara ; Parminder Gomez ; Marlon Hassan Other Interventions: Discharge Summary Assessment (RN) Last Done: 08/10/19 14:22 DC Date/Time DO NOT enter until pt leaves facility: 08/10/19 14:56
[2019-08-11] MEDS ORDERED: ATORVASTATIN 40 MG TAB PO SCH (09:00)
== END 2019-08-10 14:56 | disposition home or self-care (01) | DRG 247 ==
LOC: ED 22:23 → 2S 08-09 00:41 → SUATTDRO 08-09 00:41 → 2S 08-09 01:11
PROC: CLB.CCG (2019-08-09 09:15)